=== PATIENT | female | born 2000 | race African-American/Black ===

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

== ENCOUNTER 2019-04-12 16:12 | Emergency (ER) | payer OTHER ==
[2019-04-12] MEDS ORDERED: METOCLOPRAMIDE 5 MG/ML 2 ML VIAL IVP STA (17:22)
[2019-04-12] MEDS ORDERED: KETOROLAC 30 MG/ML 1 ML VIAL IVP STA (17:22)
[2019-04-12] MEDS ORDERED: diphenhydrAMINE 50 MG/ML 1 ML VIAL IVP STA (17:23)
--- NOTE | 2019-04-12 17:37 | ED ---
General Adult HPI - General Chief complaint: Headache Stated complaint: MIGRAINE Time Seen by Provider: 04/12/19 16:54 Source: patient, RN notes reviewed Mode of arrival: ambulatory Limitations: no limitations - History of Present Illness Initial comments: 18-year-old female presents to the emergency department for chief complaint of headache. Patient has had a headache since yesterday. Describes as across the frontal aspect of her head. Patient has had headaches like this several times before. He states they have always felt exactly the same. Denies any new features of this headache. States her pain is currently 7 out of 10. States pain came on gradually yesterday and did not have any features of maximal intensity at onset. Denies any neck pain or stiffness. Denies fevers or chills.Patient has no other complaints at this time including shortness of breath, chest pain, abdominal pain, nausea or vomiting,, or visual changes. - Related Data Home Medications Medication Instructions Recorded Confirmed RX: Insulin Aspart [NovoLOG] 25 units SQ AC-LUNCH 05/08/18 12/10/18 RX: acetaZOLAMIDE [Diamox] 500 mg PO DAILY 05/08/18 12/10/18 Previous Rx's Medication Instructions Recorded RX: Insulin NPH Hum/Reg Insulin Hm 50 unit SQ BID 30 Days #30 05/11/18 [NovoLIN 70-30 100 UNIT/ML VIAL] Allergies Allergy/AdvReac Type Severity Reaction Status Date / Time No Known Allergies Allergy Verified 12/10/18 17:11 Review of Systems ROS Statement: Those systems with pertinent positive or pertinent negative responses have been documented in the HPI. ROS Other: All systems not noted in ROS Statement are negative. Past Medical History Past Medical History: Diabetes Mellitus Additional Past Medical History / Comment(s): pseudo tumor causing chest pain in 2014 History of Any Multi-Drug Resistant Organisms: None Reported, MRSA Date of last positivie culture/infection: 2011 MDRO Source:: hand Past Surgical History: No Surgical Hx Reported Past Psychological History: No Psychological Hx Reported Smoking Status: Never smoker Past Alcohol Use History: None Reported Past Drug Use History: None Reported - Past Family History Father Family Medical History: Diabetes Mellitus Mother Family Medical History: Asthma, Diabetes Mellitus General Exam Limitations: no limitations General appearance: alert, in no apparent distress Head exam: Present: atraumatic, normocephalic, normal inspection Eye exam: Present: normal appearance, PERRL, EOMI. Absent: scleral icterus, conjunctival injection, periorbital swelling ENT exam: Present: normal exam, mucous membranes moist Neck exam: Present: normal inspection, full ROM. Absent: tenderness, meningismus, lymphadenopathy Respiratory exam: Present: normal lung sounds bilaterally. Absent: respiratory distress, wheezes, rales, rhonchi, stridor Cardiovascular Exam: Present: regular rate, normal rhythm, normal heart sounds. Absent: systolic murmur, diastolic murmur, rubs, gallop, clicks Neurological exam: Present: alert, oriented X3, normal gait Course Vital Signs 04/12/19 16:51 Temperature 98.1 F Pulse Rate 90 Respiratory 17 Rate Blood Pressure 124/85 O2 Sat by Pulse 100 Oximetry Medical Decision Making - Medical Decision Making Patient was given migraine cocktail. Significant improvement in pain. Currently requesting discharge. Patient was discharged from the follow-up with primary care. Recommended to return here if she has any worsening symptoms. Disposition Clinical Impression: Headache Disposition: HOME SELF-CARE Condition: Good Instructions (If sedation given, give patient instructions): Acute Headache (ED) Additional Instructions: Take Motrin and Tylenol for pain. Follow up with your primary care provider in one to 2 days. Return to the emergency department if you have any worsening symptoms. Is patient prescribed a controlled substance at d/c from ED?: No Referrals: Zina Veronica MD [Primary Care Provider] - 1-2 days Time of Disposition: 18:07
[2019-04-12] MEDS ORDERED: SODIUM CHLORIDE 0.9% 1,000 ML IV STA (17:45)
[2019-04-12 19:07] VITALS: BP 118/73; PULSE 102; RESP 18; TEMP 96.9
== END 2019-04-12 19:05 | disposition home or self-care (01) ==
LOC: EC 16:12
DX: R51 Headache (principal); E11.9 Type 2 diabetes mellitus without complications; Z79.4 Long term (current) use of insulin; Z86.14 Personal history of Methicillin resistant Staphylococcus aureus infection
CPT/HCPCS: 99283; 96374; 96375 ×2; 96361; J1200; J2765; J1885

== ENCOUNTER 2019-07-07 05:38 | Emergency (ER) | payer OTHER ==
[2019-07-07 05:43] VITALS: TEMP 97.3
[2019-07-07 05:48] LABS: Glucose,Whole Blood 252 mg/dL (75-99)
[2019-07-07] MEDS ORDERED: SODIUM CHLORIDE 0.9% 1,000 ML IV STA (06:19)
--- NOTE | 2019-07-07 06:22 | ED ---
Abdominal Pain HPI - General Chief Complaint: Abdominal Pain Stated Complaint: Menstrual cramps, vomiting Time Seen by Provider: 07/07/19 05:47 Source: patient, EMS Mode of arrival: EMS - History of Present Illness Initial Comments: Kylie is a 18-year-old female who presents the ER today ambulance for evaluation of menstrual cramps nausea and vomiting. Patient reports she has suffered with this for a long period of time she severe cramping with her menses was nauseated and has vomiting. She's been seen in the ER for this she is followed with her primary care she was prescribed control but reported she didn't like how it made her feel therefore she discontinued use after only 2 months. She's never been evaluated by gynecology. She has had pelvic ultrasounds past never been told that she has endometriosis or polycystic ovaries. The patient reports she is not sexually active she has no concern for sexual transmitted infections or PID. She has no concern for sheet. She is actively on her menses. - Related Data Home Medications Medication Instructions Recorded Confirmed Insulin Aspart [NovoLOG] 25 units SQ AC-LUNCH 05/08/18 12/10/18 acetaZOLAMIDE [Diamox] 500 mg PO DAILY 05/08/18 12/10/18 Previous Rx's Medication Instructions Recorded Insulin NPH Hum/Reg Insulin Hm 50 unit SQ BID 30 Days #30 05/11/18 [NovoLIN 70-30 100 UNIT/ML VIAL] Allergies Allergy/AdvReac Type Severity Reaction Status Date / Time No Known Allergies Allergy Verified 07/07/19 05:43 Review of Systems ROS Statement: Those systems with pertinent positive or pertinent negative responses have been documented in the HPI. ROS Other: All systems not noted in ROS Statement are negative. Past Medical History Past Medical History: Diabetes Mellitus Additional Past Medical History / Comment(s): pseudo tumor causing chest pain in 2014 History of Any Multi-Drug Resistant Organisms: None Reported, MRSA Date of last positivie culture/infection: 2011 MDRO Source:: hand Past Surgical History: No Surgical Hx Reported Past Psychological History: No Psychological Hx Reported Smoking Status: Never smoker Past Alcohol Use History: None Reported Past Drug Use History: None Reported - Past Family History Father Family Medical History: Diabetes Mellitus Mother Family Medical History: Asthma, Diabetes Mellitus Course Vital Signs 07/07/19 07/07/19 05:41 07:53 Temperature 97.3 F L Pulse Rate 80 68 Respiratory 18 20 Rate Blood Pressure 149/93 132/72 O2 Sat by Pulse 100 98 Oximetry Medical Decision Making - Medical Decision Making SHEENT was seen and evaluated history is obtained from the patient 89 female who experiences very severe menstrual cramping with associated nausea and vomiting, this episode is similar to previous, symptoms did not improve with 2 months of control use that she discontinued it, patient has never been evaluated by a programming director Upon my evaluation the patient's abdomen is soft, nontender non-peritoneal she is awake alert and oriented she is heaving but not vomiting. She was given Zofran in route to the hospital. Labs and imaging were ordered After urine came back negative multiple occasions were ordered however upon reevaluation the patient was sleeping comfortably. At this time the patient will be discharged home, she was advised to take Motrin for menstrual cramps, Zofran as needed for the nausea. Again patient was encouraged to follow up with a programming director for further evaluation of possible endometriosis or PMDD. - Lab Data Result diagrams: 07/07/19 05:55 07/07/19 05:55 Lab Results 07/07/19 07/07/19 07/07/19 Range/Units 05:45 05:55 05:55 WBC 7.1 (4.0-11.0) k/uL RBC 5.64 H (3.80-5.40) m/uL Hgb 10.0 L (11.4-16.0) gm/dL Hct 34.6 (34.0-46.0) % MCV 61.4 L (80.0-100.0) fL MCH 17.8 L (25.0-35.0) pg MCHC 29.0 L (31.0-37.0) g/dL RDW 17.5 H (11.5-15.5) % Plt Count 354 (150-450) k/uL Neutrophils % 68 % Lymphocytes % 25 % Monocytes % 5 % Eosinophils % 1 % Basophils % 0 % Neutrophils # 4.8 (1.3-7.7) k/uL Lymphocytes # 1.8 (1.0-4.8) k/uL Monocytes # 0.3 (0-1.0) k/uL Eosinophils # 0.1 (0-0.7) k/uL Basophils # 0.0 (0-0.2) k/uL Hypochromasia Marked Anisocytosis Slight Microcytosis Marked Sodium 139 (137-145) mmol/L Potassium 3.9 (3.5-5.1) mmol/L Chloride 106 (98-107) mmol/L Carbon Dioxide 21 L (22-30) mmol/L Anion Gap 12 mmol/L BUN 8 (7-17) mg/dL Creatinine 0.46 L (0.52-1.04) mg/dL Est GFR (CKD-EPI)AfAm >90 (>60 ml/min/1.73 sqM) Est GFR (CKD-EPI)NonAf >90 (>60 ml/min/1.73 sqM) Glucose 247 H (74-99) mg/dL POC Glucose (mg/dL) 252 H (75-99) mg/dL POC Glu Music Director ID Salma Mcmillan Calcium 9.6 (8.4-10.2) mg/dL Total Bilirubin 0.2 (0.2-1.3) mg/dL AST 15 (14-36) U/L ALT 11 (4-34) U/L Alkaline Phosphatase 92 (38-126) U/L Total Protein 8.0 (6.3-8.2) g/dL Albumin 4.1 (3.5-5.0) g/dL Lipase 70 (23-300) U/L Urine Color Urine Appearance (Clear) Urine pH (5.0-8.0) Ur Specific [place] (1.001-1.035) Urine Protein (Negative) Urine Glucose (UA) (Negative) Urine Ketones (Negative) Urine Blood (Negative) Urine Nitrite (Negative) Urine Bilirubin (Negative) Urine Urobilinogen (<2.0) mg/dL Ur Leukocyte Esterase (Negative) Urine RBC (0-5) /hpf Urine WBC (0-5) /hpf Ur Squamous Epith Cells (0-4) /hpf Amorphous Sediment (None) /hpf Urine Bacteria (None) /hpf Urine Mucus (None) /hpf Urine HCG, Qual (Not Detectd) 07/07/19 07/07/19 Range/Units 06:00 06:00 WBC (4.0-11.0) k/uL RBC (3.80-5.40) m/uL Hgb (11.4-16.0) gm/dL Hct (34.0-46.0) % MCV (80.0-100.0) fL MCH (25.0-35.0) pg MCHC (31.0-37.0) g/dL RDW (11.5-15.5) % Plt Count (150-450) k/uL Neutrophils % % Lymphocytes % % Monocytes % % Eosinophils % % Basophils % % Neutrophils # (1.3-7.7) k/uL Lymphocytes # (1.0-4.8) k/uL Monocytes # (0-1.0) k/uL Eosinophils # (0-0.7) k/uL Basophils # (0-0.2) k/uL Hypochromasia Anisocytosis Microcytosis Sodium (137-145) mmol/L Potassium (3.5-5.1) mmol/L Chloride (98-107) mmol/L Carbon Dioxide (22-30) mmol/L Anion Gap mmol/L BUN (7-17) mg/dL Creatinine (0.52-1.04) mg/dL Est GFR (CKD-EPI)AfAm (>60 ml/min/1.73 sqM) Est GFR (CKD-EPI)NonAf (>60 ml/min/1.73 sqM) Glucose (74-99) mg/dL POC Glucose (mg/dL) (75-99) mg/dL POC Glu Music Director ID Calcium (8.4-10.2) mg/dL Total Bilirubin (0.2-1.3) mg/dL AST (14-36) U/L ALT (4-34) U/L Alkaline Phosphatase (38-126) U/L Total Protein (6.3-8.2) g/dL Albumin (3.5-5.0) g/dL Lipase (23-300) U/L Urine Color Yellow Urine Appearance Cloudy H (Clear) Urine pH 6.5 (5.0-8.0) Ur Specific [place] 1.013 (1.001-1.035) Urine Protein Trace H (Negative) Urine Glucose (UA) Negative (Negative) Urine Ketones Negative (Negative) Urine Blood Moderate H (Negative) Urine Nitrite Negative (Negative) Urine Bilirubin Negative (Negative) Urine Urobilinogen <2.0 (<2.0) mg/dL Ur Leukocyte Esterase Moderate H (Negative) Urine RBC >182 H (0-5) /hpf Urine WBC 5 (0-5) /hpf Ur Squamous Epith Cells 3 (0-4) /hpf Amorphous Sediment Rare H (None) /hpf Urine Bacteria Rare H (None) /hpf Urine Mucus Rare H (None) /hpf Urine HCG, Qual Not Detected (Not Detectd) Disposition Clinical Impression: Abdominal pain Disposition: HOME SELF-CARE Condition: Stable Additional Instructions: You need to follow up with gynecology for further evaluation of your severe menstrual symptoms. Advised suspicion he may be suffering from endometriosis but this can only be diagnosed by a programming director. Take Motrin as needed for discomfort Take Zofran as needed for nausea Make sure drinking plenty of fluids and stay hydrated Return to the ER for any worsening symptoms Is patient prescribed a controlled substance at d/c from ED?: No Referrals: Tam Copeland MD [Primary Care Provider] - 1-2 days
[2019-07-07 06:24] LABS: Amorphous Sediment,Urine Rare /hpf; Appearance,Urine Cloudy (Clear); Bacteria,Urine Rare /hpf; Bilirubin,Urine Negative (Negative); Blood,Urine Moderate (Negative); Color,Urine Yellow; Glucose,Urine (UA) Negative (Negative); Ketones,Urine Negative (Negative); Leukocyte Esterase,Urine Moderate (Negative); Mucus,Urine Rare /hpf; Nitrite,Urine Negative (Negative); PH, Urine 6.5 (5.0-8.0); Protein,Urine Trace (Negative); RBC,Urine >182 /hpf (0-5); Specific Gravity,Urine 1.013 (1.001-1.035); Squamous Epithelial Cell,Urine 3 /hpf (0-4); Urobilinogen,Urine <2.0 mg/dL (<2.0); WBC,Urine 5 /hpf (0-5)
[2019-07-07 06:34] LABS: Anisocytosis Slight; Basophils % (A) 0 %; Eosinophils # (A) 0.1 k/uL (0-0.7); Eosinophils % (A) 1 %; HCT 34.6 % (34.0-46.0); Hypochromasia Marked; Lymphocytes # (A) 1.8 k/uL (1.0-4.8); Lymphocytes % (A) 25 %; MCH 17.8 pg (25.0-35.0); MCV 61.4 fL (80.0-100.0); Mean Platelet Volume 6.8; Microcytosis Marked; Monocytes # (A) 0.3 k/uL (0-1.0); Monocytes % (A) 5 %; Neutrophils # (A) 4.8 k/uL (1.3-7.7); Neutrophils % (A) 68 %; Platelet Count 354 k/uL (150-450); RBC 5.64 m/uL (3.80-5.40); RDW 17.5 % (11.5-15.5); WBC 7.1 k/uL (4.0-11.0)
[2019-07-07 06:46] LABS: ALT 11 U/L (4-34); AST 15 U/L (14-36); African American GFR (CKD) >90 (>60 ml/min/1.73 sqM); Albumin 4.1 g/dL (3.5-5.0); Alkaline Phosphatase 92 U/L (38-126); Anion Gap 12 mmol/L; Blood Urea Nitrogen 8 mg/dL (7-17); Calcium 9.6 mg/dL (8.4-10.2); Carbon Dioxide 21 mmol/L (22-30); Chloride 106 mmol/L (98-107); Glucose 247 mg/dL (74-99); Non-African American GFR(CKD) >90 (>60 ml/min/1.73 sqM); Potassium 3.9 mmol/L (3.5-5.1); Sodium 139 mmol/L (137-145); Total Bilirubin 0.2 mg/dL (0.2-1.3)
[2019-07-07] MEDS ORDERED: diphenhydrAMINE 50 MG/ML 1 ML VIAL IVP STA (07:15)
[2019-07-07] MEDS ORDERED: KETOROLAC 30 MG/ML 1 ML VIAL IVP STA (07:15)
[2019-07-07] MEDS ORDERED: METOCLOPRAMIDE 5 MG/ML 2 ML VIAL IVP STA (07:15)
[2019-07-07] MEDS ORDERED: ONDANSETRON 4 MG ODT STARTER PACK 2 TAB BTL PO STA (07:29)
[2019-07-07 07:54] VITALS: BP 132/72; PULSE 68; RESP 20
--- NOTE | 2019-07-09 00:46 | CDI ---
Dear Heather Dolan DO: Please do addendum Physical Examination. Thank You, Hima Ward, Phlebotomist Medical Lab Assistant. If you have any questions, please contact [employer] at [phone]. [facility]
== END 2019-07-07 07:59 | disposition home or self-care (01) ==
LOC: EC 05:38
DX: R10.9 Unspecified abdominal pain (principal); R11.2 Nausea with vomiting, unspecified; N94.6 Dysmenorrhea, unspecified; E11.9 Type 2 diabetes mellitus without complications; Z79.4 Long term (current) use of insulin; Z86.14 Personal history of Methicillin resistant Staphylococcus aureus infection; Z53.8 Procedure and treatment not carried out for other reasons
CPT/HCPCS: 99284; 96374; 96375; 96361; 36415; 80053; 83690; 85025; 81001; 81025; J1200; J2765; S0119

== ENCOUNTER 2019-09-05 15:25 | Emergency (ER) | payer OTHER ==
[2019-09-05 15:39] VITALS: RESP 18
[2019-09-05] MEDS ORDERED: ONDANSETRON 4 MG/2 ML VIAL IVP STA (16:30)
[2019-09-05] MEDS ORDERED: SODIUM CHLORIDE 0.9% 1,000 ML IV STA (16:30)
[2019-09-05] MEDS ORDERED: KETOROLAC 30 MG/ML 1 ML VIAL IVP STA (16:30)
[2019-09-05 16:50] LABS: African American GFR (CKD) >90 (>60 ml/min/1.73 sqM); Anion Gap 14 mmol/L; Blood Urea Nitrogen 7 mg/dL (7-17); Calcium 9.8 mg/dL (8.4-10.2); Carbon Dioxide 19 mmol/L (22-30); Chloride 105 mmol/L (98-107); Glucose 291 mg/dL (74-99); Non-African American GFR(CKD) >90 (>60 ml/min/1.73 sqM); Potassium 4.5 mmol/L (3.5-5.1); Sodium 138 mmol/L (137-145)
[2019-09-05 17:00] LABS: Anisocytosis Slight; Basophils % (A) 0 %; Eosinophils # (A) 0.2 k/uL (0-0.7); Eosinophils % (A) 2 %; HCT 39.3 % (34.0-46.0); Hypochromasia Marked; Lymphocytes # (A) 2.3 k/uL (1.0-4.8); Lymphocytes % (A) 24 %; MCH 18.1 pg (25.0-35.0); MCHC 27.9 g/dL (31.0-37.0); MCV 64.9 fL (80.0-100.0); Mean Platelet Volume 7.6; Microcytosis Marked; Monocytes # (A) 0.3 k/uL (0-1.0); Monocytes % (A) 3 %; Neutrophils # (A) 6.7 k/uL (1.3-7.7); Neutrophils % (A) 70 %; Platelet Count 411 k/uL (150-450); RBC 6.05 m/uL (3.80-5.40); RDW 16.4 % (11.5-15.5); WBC 9.6 k/uL (4.0-11.0)
[2019-09-05 17:56] LABS: Amorphous Sediment,Urine Rare /hpf; Appearance,Urine Cloudy (Clear); Bilirubin,Urine Negative (Negative); Blood,Urine Moderate (Negative); Color,Urine Yellow; Glucose,Urine (UA) Negative (Negative); Ketones,Urine Negative (Negative); Leukocyte Esterase,Urine Large (Negative); Mucus,Urine Rare /hpf; Nitrite,Urine Negative (Negative); PH, Urine 7.5 (5.0-8.0); Protein,Urine Trace (Negative); RBC,Urine >182 /hpf (0-5); Specific Gravity,Urine 1.014 (1.001-1.035); Squamous Epithelial Cell,Urine 2 /hpf (0-4); Urobilinogen,Urine <2.0 mg/dL (<2.0); WBC,Urine 16 /hpf (0-5)
--- NOTE | 2019-09-05 18:12 | ED ---
Abdominal Pain HPI - General Chief Complaint: Abdominal Pain Stated Complaint: Abd pain Time Seen by Provider: 09/05/19 16:04 Source: patient Mode of arrival: wheelchair Limitations: no limitations - History of Present Illness Initial Comments: Patient is a 18-year-old female presenting to the emergency Department with complaints of lower abdominal cramping and nausea for 2 days. Patient states she will sometimes get this way when her cycle comes. Patient states it feels the same kind of abdominal cramping she gets with her cycles. She states she tried a nausea medication this morning without relief. She denies any fever, chills, diarrhea. She denies being at this time. She has no other complaints at this time. Upon arrival to the ER, her vitals are stable. - Related Data Home Medications Medication Instructions Recorded Confirmed Insulin Aspart [NovoLOG] 25 units SQ AC-LUNCH 05/08/18 12/10/18 acetaZOLAMIDE [Diamox] 500 mg PO DAILY 05/08/18 12/10/18 Previous Rx's Medication Instructions Recorded Insulin NPH Hum/Reg Insulin Hm 50 unit SQ BID 30 Days #30 05/11/18 [NovoLIN 70-30 100 UNIT/ML VIAL] Ondansetron Odt [Zofran Odt] 4 mg PO Q8HR PRN #10 tab 09/05/19 Allergies Allergy/AdvReac Type Severity Reaction Status Date / Time No Known Allergies Allergy Verified 09/05/19 15:39 Review of Systems ROS Statement: Those systems with pertinent positive or pertinent negative responses have been documented in the HPI. ROS Other: All systems not noted in ROS Statement are negative. Past Medical History Past Medical History: Diabetes Mellitus Additional Past Medical History / Comment(s): pseudo tumor causing chest pain in 2014 History of Any Multi-Drug Resistant Organisms: None Reported, MRSA Date of last positivie culture/infection: 2011 MDRO Source:: hand Past Surgical History: No Surgical Hx Reported Past Psychological History: No Psychological Hx Reported Smoking Status: Never smoker Past Alcohol Use History: None Reported Past Drug Use History: None Reported - Past Family History Father Family Medical History: Diabetes Mellitus Mother Family Medical History: Asthma, Diabetes Mellitus General Exam - General Exam Comments Initial Comments: GENERAL: Well-appearing, well-nourished and in no acute distress. HEAD: Atraumatic, normocephalic. EYES: Pupils equal round and reactive to light, extraocular movements intact, sclera anicteric, conjunctiva are normal. ENT: TMs normal, nares patent, oropharynx clear without exudates. Moist mucous membranes. NECK: Normal range of motion, supple without lymphadenopathy or JVD. LUNGS: Breath sounds clear to auscultation bilaterally and equal. No wheezes rales or rhonchi. HEART: Regular rate and rhythm without murmurs, rubs or gallops. ABDOMEN: Very mild suprapubic tenderness on palpation. Soft, normoactive bowel sounds. No guarding, no rebound. No masses appreciated. : Deferred EXTREMITIES: Normal range of motion, no pitting or edema. No clubbing or cyanosis. NEUROLOGICAL: Normal speech, normal gait. PSYCH: Normal mood, normal affect. SKIN: Warm, Dry, normal turgor, no rashes or lesions noted. Limitations: no limitations Course Vital Signs 09/05/19 09/05/19 15:37 18:26 Temperature 97.8 F 98.4 F Pulse Rate 95 74 Respiratory 18 18 Rate Blood Pressure 155/96 113/63 O2 Sat by Pulse 100 98 Oximetry Medical Decision Making - Medical Decision Making Patient is a 18-year-old female here for lower abdominal cramping and nausea in relation to her menstrual cycle. She has been here for the same thing in the past. Vitals are stable. Exam is unremarkable. Patient was given Toradol, Zofran, fluids. She's been resting complaining ER. She reports improvement of symptoms. Discussed with patient and her symptoms are most likely related to her menstrual cycle. She will take ibuprofen as needed as well as Zofran for nausea. Patient is stable for discharge. Return parameters were discussed with the patient she verbalized understanding. - Lab Data Result diagrams: 09/05/19 16:00 09/05/19 16:00 Lab Results 09/05/19 09/05/19 09/05/19 Range/Units 16:00 16:00 17:40 WBC 9.6 (4.0-11.0) k/uL RBC 6.05 H (3.80-5.40) m/uL Hgb 11.0 L (11.4-16.0) gm/dL Hct 39.3 (34.0-46.0) % MCV 64.9 L (80.0-100.0) fL MCH 18.1 L (25.0-35.0) pg MCHC 27.9 L (31.0-37.0) g/dL RDW 16.4 H (11.5-15.5) % Plt Count 411 (150-450) k/uL Neutrophils % 70 % Lymphocytes % 24 % Monocytes % 3 % Eosinophils % 2 % Basophils % 0 % Neutrophils # 6.7 (1.3-7.7) k/uL Lymphocytes # 2.3 (1.0-4.8) k/uL Monocytes # 0.3 (0-1.0) k/uL Eosinophils # 0.2 (0-0.7) k/uL Basophils # 0.0 (0-0.2) k/uL Hypochromasia Marked Anisocytosis Slight Microcytosis Marked Sodium 138 (137-145) mmol/L Potassium 4.5 (3.5-5.1) mmol/L Chloride 105 (98-107) mmol/L Carbon Dioxide 19 L (22-30) mmol/L Anion Gap 14 mmol/L BUN 7 (7-17) mg/dL Creatinine 0.41 L (0.52-1.04) mg/dL Est GFR (CKD-EPI)AfAm >90 (>60 ml/min/1.73 sqM) Est GFR (CKD-EPI)NonAf >90 (>60 ml/min/1.73 sqM) Glucose 291 H (74-99) mg/dL Calcium 9.8 (8.4-10.2) mg/dL Urine Color Yellow Urine Appearance Cloudy H (Clear) Urine pH 7.5 (5.0-8.0) Ur Specific [place] 1.014 (1.001-1.035) Urine Protein Trace H (Negative) Urine Glucose (UA) Negative (Negative) Urine Ketones Negative (Negative) Urine Blood Moderate H (Negative) Urine Nitrite Negative (Negative) Urine Bilirubin Negative (Negative) Urine Urobilinogen <2.0 (<2.0) mg/dL Ur Leukocyte Esterase Large H (Negative) Urine RBC >182 H (0-5) /hpf Urine WBC 16 H (0-5) /hpf Ur Squamous Epith Cells 2 (0-4) /hpf Amorphous Sediment Rare H (None) /hpf Urine Mucus Rare H (None) /hpf Urine HCG, Qual (Not Detectd) 09/05/19 Range/Units 17:40 WBC (4.0-11.0) k/uL RBC (3.80-5.40) m/uL Hgb (11.4-16.0) gm/dL Hct (34.0-46.0) % MCV (80.0-100.0) fL MCH (25.0-35.0) pg MCHC (31.0-37.0) g/dL RDW (11.5-15.5) % Plt Count (150-450) k/uL Neutrophils % % Lymphocytes % % Monocytes % % Eosinophils % % Basophils % % Neutrophils # (1.3-7.7) k/uL Lymphocytes # (1.0-4.8) k/uL Monocytes # (0-1.0) k/uL Eosinophils # (0-0.7) k/uL Basophils # (0-0.2) k/uL Hypochromasia Anisocytosis Microcytosis Sodium (137-145) mmol/L Potassium (3.5-5.1) mmol/L Chloride (98-107) mmol/L Carbon Dioxide (22-30) mmol/L Anion Gap mmol/L BUN (7-17) mg/dL Creatinine (0.52-1.04) mg/dL Est GFR (CKD-EPI)AfAm (>60 ml/min/1.73 sqM) Est GFR (CKD-EPI)NonAf (>60 ml/min/1.73 sqM) Glucose (74-99) mg/dL Calcium (8.4-10.2) mg/dL Urine Color Urine Appearance (Clear) Urine pH (5.0-8.0) Ur Specific [place] (1.001-1.035) Urine Protein (Negative) Urine Glucose (UA) (Negative) Urine Ketones (Negative) Urine Blood (Negative) Urine Nitrite (Negative) Urine Bilirubin (Negative) Urine Urobilinogen (<2.0) mg/dL Ur Leukocyte Esterase (Negative) Urine RBC (0-5) /hpf Urine WBC (0-5) /hpf Ur Squamous Epith Cells (0-4) /hpf Amorphous Sediment (None) /hpf Urine Mucus (None) /hpf Urine HCG, Qual Not Detected (Not Detectd) Disposition Clinical Impression: Nausea & vomiting, Menstrual cramps Disposition: HOME SELF-CARE Condition: Stable Instructions (If sedation given, give patient instructions): Dysmenorrhea (ED) Additional Instructions: Please return to the Emergency Department if symptoms worsen or any other concerns. Take ibuprofen for cramping as well as Zofran as needed for additional nausea. Prescriptions: Ondansetron Odt [Zofran Odt] 4 mg PO Q8HR PRN #10 tab PRN Reason: Nausea Is patient prescribed a controlled substance at d/c from ED?: No Referrals: Tam Copeland MD [Primary Care Provider] - 1-2 days
[2019-09-05 18:27] VITALS: BP 113/63; PULSE 74; TEMP 98.4
== END 2019-09-05 18:26 | disposition home or self-care (01) ==
LOC: EC 15:25
DX: N94.6 Dysmenorrhea, unspecified (principal); R11.2 Nausea with vomiting, unspecified; E11.9 Type 2 diabetes mellitus without complications; Z79.4 Long term (current) use of insulin; Z79.899 Other long term (current) drug therapy
CPT/HCPCS: 36415; 80048; 85025; 81001; 81025; 87086; 99284; 96374; 96375; 96361; J2405; J1885

== ENCOUNTER 2019-11-04 17:40 | Emergency (ER) | payer OTHER ==
[2019-11-04 17:44] VITALS: RESP 16
[2019-11-04] MEDS ORDERED: SODIUM CHLORIDE 0.9% 1,000 ML IV STA (18:16)
[2019-11-04] MEDS ORDERED: ONDANSETRON 4 MG/2 ML VIAL IVP STA (18:16)
[2019-11-04] MEDS ORDERED: KETOROLAC 30 MG/ML 1 ML VIAL IVP STA (18:16)
--- NOTE | 2019-11-04 18:19 | ED ---
Abdominal Pain HPI - General Chief Complaint: Abdominal Pain Stated Complaint: menstrual cramps Time Seen by Provider: 11/04/19 18:05 Source: patient Mode of arrival: wheelchair Limitations: no limitations - History of Present Illness Initial Comments: Patient is a 19-year-old female with history of dysmenorrhea and type 2 diabetes presenting to the emergency department with a chief complaint of menstrual cramps. Patient states typically she develops abdominal cramping secondary to her menstrual cycle about 2 days after the onset of bleeding. Patient reports today she developed the cramping along with nausea and multiple episodes of nonbilious and nonbloody vomiting immediately after she started her cycle. States the pain is cramping in nature in the suprapubic region. Does report vaginal bleeding. Denies UTI symptoms. Does report taking [id number] analgesics with minimal improvement of symptoms. States her diabetes is not well-controlled. - Related Data Home Medications Medication Instructions Recorded Confirmed INSULIN LISPRO (humaLOG) [humaLOG] See Protocol SQ AC-TID 11/04/19 11/04/19 Insulin Aspart Protam & Aspart 55 unit SQ DAILY 11/04/19 11/04/19 [NovoLOG MIX 70-30 Flexpen] Insulin Aspart Protam & Aspart 60 unit SQ HS 11/04/19 11/04/19 [NovoLOG MIX 70-30 Flexpen] Allergies Allergy/AdvReac Type Severity Reaction Status Date / Time No Known Allergies Allergy Verified 11/04/19 20:07 Review of Systems ROS Statement: Those systems with pertinent positive or pertinent negative responses have been documented in the HPI. ROS Other: All systems not noted in ROS Statement are negative. Past Medical History Past Medical History: Diabetes Mellitus Additional Past Medical History / Comment(s): pseudo tumor causing chest pain in 2014 History of Any Multi-Drug Resistant Organisms: None Reported, MRSA Date of last positivie culture/infection: 2011 MDRO Source:: hand Past Surgical History: No Surgical Hx Reported Past Psychological History: No Psychological Hx Reported Smoking Status: Never smoker Past Alcohol Use History: None Reported Past Drug Use History: None Reported - Past Family History Father Family Medical History: Diabetes Mellitus Mother Family Medical History: Asthma, Diabetes Mellitus General Exam Limitations: no limitations General appearance: alert, in no apparent distress, obese Head exam: Present: atraumatic, normocephalic, normal inspection Eye exam: Present: normal appearance, PERRL, EOMI Pupils: Present: normal accommodation ENT exam: Present: normal exam, normal oropharynx, mucous membranes moist, TM's normal bilaterally, normal external ear exam Neck exam: Present: normal inspection, full ROM. Absent: tenderness Respiratory exam: Present: normal lung sounds bilaterally. Absent: respiratory distress, wheezes Cardiovascular Exam: Present: regular rate, normal rhythm, normal heart sounds GI/Abdominal exam: Present: soft, tenderness (Suprapubic tenderness), normal bowel sounds. Absent: distended, guarding, rebound Extremities exam: Present: normal inspection, full ROM. Absent: tenderness Back exam: Present: normal inspection, full ROM. Absent: CVA tenderness (R), CVA tenderness (L) Neurological exam: Present: alert, oriented X3, CN II-XII intact, normal gait Psychiatric exam: Present: normal affect, normal mood Skin exam: Present: warm, dry, intact, normal color Course Vital Signs 11/04/19 17:42 Temperature 98.4 F Pulse Rate 82 Respiratory 16 Rate Blood Pressure 167/86 O2 Sat by Pulse 98 Oximetry Medical Decision Making - Medical Decision Making Patient is 19-year-old female with history of dysmenorrhea and type 2 diabetes presenting to emergency Department with chief complaint of menstrual cramps. Patient was given Toradol, fluids and Zofran. Reevaluation patient continues to be nauseous and vomiting. She was given Reglan and Benadryl. Patient still continues to be nauseous. Patient was given 1 mg of Ativan. Reevaluation patient reports improvement in symptoms along with resolution of the cramping symptoms. Patient states she is currently in the process of finding a new breeding manager. They have an appointment scheduled within a week. Return parameters thoroughly discussed the patient was understanding and agreeable. She will be discharged with Zofran. She was not able to give a urine sample. CBC reveals mild anemia of 11.1 K. elevated blood glucose levels at 250. Return parameters were thoroughly discussed the patient was understanding and agreeable. Case discussed with physician. - Lab Data Result diagrams: 11/04/19 20:50 11/04/19 20:50 Lab Results 11/04/19 11/04/19 Range/Units 20:50 20:50 WBC 8.3 (4.0-11.0) k/uL RBC 5.91 H (3.80-5.40) m/uL Hgb 11.1 L (11.4-16.0) gm/dL Hct 38.4 (34.0-46.0) % MCV 65.0 L (80.0-100.0) fL MCH 18.8 L (25.0-35.0) pg MCHC 29.0 L (31.0-37.0) g/dL RDW 16.0 H (11.5-15.5) % Plt Count 393 (150-450) k/uL Neutrophils % 77 % Lymphocytes % 17 % Monocytes % 3 % Eosinophils % 2 % Basophils % 0 % Neutrophils # 6.4 (1.3-7.7) k/uL Lymphocytes # 1.4 (1.0-4.8) k/uL Monocytes # 0.3 (0-1.0) k/uL Eosinophils # 0.2 (0-0.7) k/uL Basophils # 0.0 (0-0.2) k/uL Hypochromasia Marked Anisocytosis Slight Microcytosis Marked Sodium 136 L (137-145) mmol/L Potassium 3.9 (3.5-5.1) mmol/L Chloride 104 (98-107) mmol/L Carbon Dioxide 21 L (22-30) mmol/L Anion Gap 11 mmol/L BUN 7 (7-17) mg/dL Creatinine 0.37 L (0.52-1.04) mg/dL Est GFR (CKD-EPI)AfAm >90 (>60 ml/min/1.73 sqM) Est GFR (CKD-EPI)NonAf >90 (>60 ml/min/1.73 sqM) Glucose 253 H (74-99) mg/dL Calcium 9.1 (8.4-10.2) mg/dL Total Bilirubin 0.5 (0.2-1.3) mg/dL AST 25 (14-36) U/L ALT 13 (4-34) U/L Alkaline Phosphatase 110 (38-126) U/L Total Protein 8.5 H (6.3-8.2) g/dL Albumin 4.4 (3.5-5.0) g/dL Disposition Clinical Impression: Dysmenorrhea in adolescent, Nausea & vomiting Disposition: HOME SELF-CARE Condition: Stable Instructions (If sedation given, give patient instructions): Dysmenorrhea (ED) Additional Instructions: Take prescribed medication as directed. Follow up with a breeding manager. Return to emergency department if symptoms worsen. Is patient prescribed a controlled substance at d/c from ED?: No Referrals: Tam Copeland MD [Primary Care Provider] - 1-2 days Charles Hooper MD [STAFF PHYSICIAN] - 1-2 days Time of Disposition: 22:03
[2019-11-04] MEDS ORDERED: diphenhydrAMINE 50 MG/ML 1 ML VIAL IVP STA (19:37)
[2019-11-04] MEDS ORDERED: METOCLOPRAMIDE 5 MG/ML 2 ML VIAL IVP STA (19:38)
[2019-11-04] MEDS ORDERED: LORazepam 2 MG/ML INJ IV STA (20:19)
[2019-11-04 20:56] LABS: Anisocytosis Slight; Basophils % (A) 0 %; Eosinophils # (A) 0.2 k/uL (0-0.7); Eosinophils % (A) 2 %; HCT 38.4 % (34.0-46.0); HGB 11.1 gm/dL (11.4-16.0); Hypochromasia Marked; Lymphocytes # (A) 1.4 k/uL (1.0-4.8); Lymphocytes % (A) 17 %; MCH 18.8 pg (25.0-35.0); Mean Platelet Volume 6.8; Microcytosis Marked; Monocytes # (A) 0.3 k/uL (0-1.0); Monocytes % (A) 3 %; Neutrophils # (A) 6.4 k/uL (1.3-7.7); Neutrophils % (A) 77 %; Platelet Count 393 k/uL (150-450); RBC 5.91 m/uL (3.80-5.40); WBC 8.3 k/uL (4.0-11.0)
[2019-11-04 21:37] LABS: ALT 13 U/L (4-34); AST 25 U/L (14-36); African American GFR (CKD) >90 (>60 ml/min/1.73 sqM); Albumin 4.4 g/dL (3.5-5.0); Alkaline Phosphatase 110 U/L (38-126); Anion Gap 11 mmol/L; Blood Urea Nitrogen 7 mg/dL (7-17); Calcium 9.1 mg/dL (8.4-10.2); Carbon Dioxide 21 mmol/L (22-30); Chloride 104 mmol/L (98-107); Glucose 253 mg/dL (74-99); Non-African American GFR(CKD) >90 (>60 ml/min/1.73 sqM); Potassium 3.9 mmol/L (3.5-5.1); Sodium 136 mmol/L (137-145); Total Bilirubin 0.5 mg/dL (0.2-1.3); Total Protein 8.5 g/dL (6.3-8.2)
[2019-11-04 22:54] VITALS: BP 153/88; PULSE 84; TEMP 97.9
== END 2019-11-04 22:50 | disposition home or self-care (01) ==
LOC: EC 17:40
DX: N94.6 Dysmenorrhea, unspecified (principal); R11.2 Nausea with vomiting, unspecified; E11.9 Type 2 diabetes mellitus without complications; D64.9 Anemia, unspecified; R10.9 Unspecified abdominal pain; Z79.4 Long term (current) use of insulin; Z83.3 Family history of diabetes mellitus; Z86.14 Personal history of Methicillin resistant Staphylococcus aureus infection
CPT/HCPCS: 36415; 80053; 85025; 99284; 96374; 96375 ×4; 96361; J2060; J1200; J2765; J2405; J1885

== ENCOUNTER 2019-11-14 14:25 | Emergency (ER) | payer OTHER ==
[2019-11-14 14:31] VITALS: TEMP 98.1
[2019-11-14] MEDS ORDERED: SODIUM CHLORIDE 0.9% 1,000 ML IV STA (14:46)
[2019-11-14] MEDS ORDERED: KETOROLAC 30 MG/ML 1 ML VIAL IVP STA (14:46)
[2019-11-14] MEDS ORDERED: METOCLOPRAMIDE 5 MG/ML 2 ML VIAL IVP STA (14:46)
[2019-11-14] MEDS ORDERED: diphenhydrAMINE 50 MG/ML 1 ML VIAL IVP STA (14:46)
--- NOTE | 2019-11-14 14:55 | ED ---
Headache HPI - General Chief Complaint: Headache Stated Complaint: Abd pain, migraine Time Seen by Provider: 11/14/19 14:34 Source: RN notes reviewed, old records reviewed Mode of arrival: ambulatory Limitations: no limitations - History of Present Illness Initial Comments: Patient is a 19-year-old female who presents the emergency department today for evaluation for concern for migraine headache today, patient has episodes of nausea and vomiting yesterday. Patient percent history of migraines. She took Tylenol 7:30 this morning and states it wasn't helping her headache. She reports a frontal headache behind her eyes. Patient states that her abdominal pain is improved today. She denies any changes in urination. Her last menstrual period was 2 weeks ago. She states that she was feeling somewhat nauseous today and felt that it be best to come to the ER for further evaluation. She reports a gradual onset of headache today. - Related Data Home Medications Medication Instructions Recorded Confirmed INSULIN LISPRO (humaLOG) [humaLOG] See Protocol SQ AC-TID 11/04/19 11/04/19 Insulin Aspart Protam & Aspart 55 unit SQ DAILY 11/04/19 11/04/19 [NovoLOG MIX 70-30 Flexpen] Insulin Aspart Protam & Aspart 60 unit SQ HS 11/04/19 11/04/19 [NovoLOG MIX 70-30 Flexpen] Allergies Allergy/AdvReac Type Severity Reaction Status Date / Time No Known Allergies Allergy Verified 11/14/19 14:30 Review of Systems ROS Statement: Those systems with pertinent positive or pertinent negative responses have been documented in the HPI. ROS Other: All systems not noted in ROS Statement are negative. Past Medical History Past Medical History: Diabetes Mellitus Additional Past Medical History / Comment(s): pseudo tumor causing chest pain in 2014, migraines History of Any Multi-Drug Resistant Organisms: None Reported, MRSA Date of last positivie culture/infection: 2011 MDRO Source:: hand Past Surgical History: No Surgical Hx Reported Past Psychological History: No Psychological Hx Reported Smoking Status: Never smoker Past Alcohol Use History: None Reported Past Drug Use History: None Reported - Past Family History Father Family Medical History: Diabetes Mellitus Mother Family Medical History: Asthma, Diabetes Mellitus General Exam - General Exam Comments Initial Comments: 19 year old female. Limitations: no limitations General appearance: alert, in no apparent distress Head exam: Present: atraumatic, normocephalic, normal inspection Eye exam: Present: normal appearance, PERRL, EOMI. Absent: scleral icterus, conjunctival injection, periorbital swelling ENT exam: Present: normal exam, mucous membranes moist Neck exam: Present: normal inspection. Absent: tenderness, meningismus, lymphadenopathy Respiratory exam: Present: normal lung sounds bilaterally. Absent: respiratory distress, wheezes, rales, rhonchi, stridor Cardiovascular Exam: Present: regular rate, normal rhythm, normal heart sounds. Absent: systolic murmur, diastolic murmur, rubs, gallop, clicks GI/Abdominal exam: Present: soft, normal bowel sounds. Absent: distended, tenderness, guarding, rebound, rigid Extremities exam: Present: normal inspection, full ROM, normal capillary refill. Absent: tenderness, pedal edema, joint swelling, calf tenderness Back exam: Present: normal inspection Neurological exam: Present: alert, oriented X3, CN II-XII intact Psychiatric exam: Present: normal affect, normal mood Skin exam: Present: warm, dry, intact, normal color. Absent: rash Course Vital Signs 11/14/19 14:28 Temperature 98.1 F Pulse Rate 82 Respiratory 20 Rate Blood Pressure 158/81 O2 Sat by Pulse 99 Oximetry - Reevaluation(s) Reevaluation #1: 11/14/19 15:34 Patient was reevaluated and resting comfortably in bed. She reports her headache diminished. Medical Decision Making - Medical Decision Making 2-[age]old female presents returned today with migraine headache after nausea and vomiting yesterday. Patient has no acute neurological deficits. She has no abdominal tenderness otherwise appears well. Patient is given IV fluids for dehydration and was given migraine cocktail. She reports improvement of symptoms. I discussed at this time Patient should rest and remain hydrated follow-up with her primary care doctor. All questions were answered. Disposition Clinical Impression: Migraine Disposition: HOME SELF-CARE Condition: Good Instructions (If sedation given, give patient instructions): Acute Headache (ED) Additional Instructions: Rest, increase fluid intake. Please follow up with family doctor if symptoms h ave not improved over the next two days. Please return to the emergency room if your symptoms increase or worsen or for any other concerns. Is patient prescribed a controlled substance at d/c from ED?: No Referrals: Tam Copeland MD [Primary Care Provider] - 1-2 days Time of Disposition: 16:01
[2019-11-14 16:49] VITALS: BP 128/86; PULSE 71; RESP 16
== END 2019-11-14 16:47 | disposition home or self-care (01) ==
LOC: EC 14:25
DX: G43.909 Migraine, unspecified, not intractable, without status migrainosus (principal); E86.0 Dehydration; E11.9 Type 2 diabetes mellitus without complications; Z79.4 Long term (current) use of insulin; Z86.14 Personal history of Methicillin resistant Staphylococcus aureus infection
CPT/HCPCS: 99283; 96374; 96375 ×2; 96361; J1200; J2765; J1885

== ENCOUNTER 2021-08-30 05:59 | Emergency (ER) | payer OTHER ==
[2021-08-30 06:04] VITALS: RESP 18; TEMP 98.3
[2021-08-30] MEDS ORDERED: IPRATROPIUM-ALBUTEROL 3 ML NEB INHALATION STA (06:45)
--- NOTE | 2021-08-30 06:48 | ED ---
URI HPI - General Chief Complaint: Upper Respiratory Infection Stated Complaint: AMADO,Congestion Time Seen by Provider: 08/30/21 06:13 Source: patient, RN notes reviewed Mode of arrival: ambulatory Limitations: no limitations - History of Present Illness Initial Comments: This is a 20-year-old female presents emergency from chief complaint of cough congestion shortness of breath. Patient states symptoms started Friday his pressor with sinus congestion but overnight she's had increasing coughing, shortness breath. She tried a breathing treatment earlier today and it seemed to help much at that time. Patient states she is tightness in her chest does not on diarrhea constipation. Denies any ear pain no sore throat at this time. Patient states she did initially have some sore throat with her drainage. - Related Data Home Medications Medication Instructions Recorded Confirmed Insulin Aspart Protam & Aspart 60 unit SQ HS 11/04/19 08/30/21 [NovoLOG MIX 70-30 Flexpen] Insulin Aspart Protam & Aspart 70 unit SQ DAILY 11/04/19 08/30/21 [NovoLOG MIX 70-30 Flexpen] Insulin NPH/Reg Insulin 70/30 25 unit SQ AC-LUNCH 08/30/21 08/30/21 [humuLIN 70/30 VIAL] Insulin NPH/Reg Insulin 70/30 See Protocol SQ AC-LUNCH 08/30/21 08/30/21 [humuLIN 70/30 VIAL] Previous Rx's Medication Instructions Recorded Azithromycin [Zithromax Z-pack (6 0 mg PO DIRECTED #1 packet 08/30/21 tabs)] predniSONE 50 mg PO DAILY #3 tab 08/30/21 Allergies Allergy/AdvReac Type Severity Reaction Status Date / Time No Known Allergies Allergy Verified 08/30/21 06:56 Review of Systems ROS Statement: Those systems with pertinent positive or pertinent negative responses have been documented in the HPI. ROS Other: All systems not noted in ROS Statement are negative. Past Medical History Past Medical History: Blood Disorder, Diabetes Mellitus Additional Past Medical History / Comment(s): pseudo tumor causing chest pain in 2014, migraines. ANEMIA History of Any Multi-Drug Resistant Organisms: None Reported, MRSA Date of last positivie culture/infection: 2011 MDRO Source:: hand Past Surgical History: No Surgical Hx Reported Additional Past Surgical History / Comment(s): LUMBAR PUNCTURE Past Anesthesia/Blood Transfusion Reactions: Unable to Obtain Past Psychological History: No Psychological Hx Reported Smoking Status: Never smoker Past Alcohol Use History: None Reported Past Drug Use History: None Reported - Past Family History Father Family Medical History: Diabetes Mellitus Mother Family Medical History: Asthma, Diabetes Mellitus General Exam Limitations: no limitations General appearance: alert, in no apparent distress Head exam: Present: atraumatic, normocephalic, normal inspection Eye exam: Present: normal appearance, PERRL, EOMI. Absent: scleral icterus, conjunctival injection, periorbital swelling ENT exam: Present: normal exam, normal oropharynx, mucous membranes moist Neck exam: Present: normal inspection, full ROM. Absent: tenderness, meningismus, lymphadenopathy Respiratory exam: Present: wheezes. Absent: normal lung sounds bilaterally, respiratory distress, rales, rhonchi, stridor Cardiovascular Exam: Present: normal rhythm, tachycardia, normal heart sounds. Absent: systolic murmur, diastolic murmur, rubs, gallop, clicks GI/Abdominal exam: Present: soft, normal bowel sounds. Absent: distended, tenderness, guarding, rebound, rigid Course Vital Signs 08/30/21 08/30/21 08/30/21 06:01 07:22 07:32 Temperature 98.3 F Pulse Rate 116 H 106 H 111 H Respiratory 18 Rate Blood Pressure 141/82 O2 Sat by Pulse 94 L Oximetry Medical Decision Making - Medical Decision Making This a 28-year-old female presents emergency room with chief complaint of cough congestion. X-ray shows evidence of fall. Lobe pneumonia. Patient is negative covid 19 negative influenza. Patient did receive Rocephin will be discharged with azithromycin and 3 days with a steroid she is well-controlled diabetic states that she is able to correct her blood sugars. Patient understands that her blood sugar will be elevated. - Lab Data Lab Results 08/30/21 08/30/21 Range/Units 06:10 06:10 Coronavirus (PCR) Not Detected (Not Detectd) Influenza Type A RNA Not Detected (Not Detectd) Influenza Type B (PCR) Not Detected (Not Detectd) Disposition Clinical Impression: Pneumonia Disposition: HOME SELF-CARE Condition: Stable Instructions (If sedation given, give patient instructions): Pneumonia (ED) Additional Instructions: Please return to the Emergency Department if symptoms worsen or any other concerns. Prescriptions: predniSONE 50 mg PO DAILY #3 tab Azithromycin [Zithromax Z-pack (6 tabs)] 0 mg PO DIRECTED #1 packet Is patient prescribed a controlled substance at d/c from ED?: No Referrals: None,Stated [Primary Care Provider] - 1-2 days Time of Disposition: 07:38
--- NOTE | 2021-08-30 06:50 | XR ---
EXAMINATION TYPE: XR chest 2V DATE OF EXAM: 08/30/2021 COMPARISON: CTA chest and chest x-ray May 08, 2018 HISTORY: Cough. TECHNIQUE: Frontal and lateral views of the chest are obtained. FINDINGS: There is new inferior left upper lobe airspace opacity on background of some increased sumeet tral markings. No pleural effusion or pneumothorax is seen bilaterally. The cardiac silhouette size remains within normal limits. The osseous structures are intact. IMPRESSION: New focal inferior left upper lung pneumonic infiltrate.
[2021-08-30] MEDS ORDERED: cefTRIAXone 1,000 MG VIAL (IM USE) IM STA (07:35)
[2021-08-30 08:01] VITALS: BP 129/72; PULSE 106
== END 2021-08-30 08:01 | disposition home or self-care (01) ==
LOC: EC 05:59
DX: J18.9 Pneumonia, unspecified organism (principal); E11.9 Type 2 diabetes mellitus without complications; Z79.4 Long term (current) use of insulin; Z20.822 Contact with and (suspected) exposure to COVID-19
CPT/HCPCS: 94640; 87502; 87635; 71046; 99285; 96372; J0696

== ENCOUNTER 2021-10-11 11:55 | Emergency (ER) | payer OTHER ==
[2021-10-11 12:10] VITALS: BP 145/96; PULSE 92; RESP 18; TEMP 98.3
[2021-10-11] MEDS ORDERED: diphenhydrAMINE 50 MG CAP PO STA (13:24)
[2021-10-11] MEDS ORDERED: dexAMETHasone 2 MG TAB PO STA (13:24)
--- NOTE | 2021-10-11 13:28 | ED ---
Allergic Reaction HPI - General Chief complaint: Allergic Reaction Stated complaint: Allergic reaction Time Seen by Provider: 10/11/21 13:00 Source: patient, RN notes reviewed Mode of arrival: ambulatory Limitations: no limitations - History of Present Illness Initial Comments: This a 21-year-old female presents emergency Department with chief complaint of ALLERGIC reaction. States around 10:30 and this morning she states that she was mowing some soaps started feeling very itchy states that she felt like her throat was scratchy. Patient states that she took one Benadryl she states that symptoms have improved she has no sensation. Patient states she still feels mildly itchy. She's never had any reaction like this in the past patient offers no complaints. - Related Data Home Medications Medication Instructions Recorded Confirmed Insulin Aspart Protam & Aspart 60 unit SQ HS 11/04/19 08/30/21 [NovoLOG MIX 70-30 Flexpen] Insulin Aspart Protam & Aspart 70 unit SQ DAILY 11/04/19 08/30/21 [NovoLOG MIX 70-30 Flexpen] Insulin NPH/Reg Insulin 70/30 25 unit SQ AC-LUNCH 08/30/21 08/30/21 [humuLIN 70/30 VIAL] Insulin NPH/Reg Insulin 70/30 See Protocol SQ AC-LUNCH 08/30/21 08/30/21 [humuLIN 70/30 VIAL] Previous Rx's Medication Instructions Recorded Azithromycin [Zithromax Z-pack (6 0 mg PO DIRECTED #1 packet 08/30/21 tabs)] predniSONE 50 mg PO DAILY #3 tab 08/30/21 Allergies Allergy/AdvReac Type Severity Reaction Status Date / Time No Known Allergies Allergy Verified 08/30/21 06:56 Review of Systems ROS Statement: Those systems with pertinent positive or pertinent negative responses have been documented in the HPI. ROS Other: All systems not noted in ROS Statement are negative. Past Medical History Past Medical History: Blood Disorder, Diabetes Mellitus Additional Past Medical History / Comment(s): pseudo tumor causing chest pain in 2014, migraines. ANEMIA History of Any Multi-Drug Resistant Organisms: None Reported, MRSA Date of last positivie culture/infection: 2011 MDRO Source:: hand Past Surgical History: No Surgical Hx Reported Additional Past Surgical History / Comment(s): LUMBAR PUNCTURE Past Anesthesia/Blood Transfusion Reactions: Unable to Obtain Past Psychological History: No Psychological Hx Reported Smoking Status: Never smoker Past Alcohol Use History: None Reported Past Drug Use History: None Reported - Past Family History Father Family Medical History: Diabetes Mellitus Mother Family Medical History: Asthma, Diabetes Mellitus General Exam Limitations: no limitations General appearance: alert, in no apparent distress Head exam: Present: atraumatic, normocephalic, normal inspection Eye exam: Present: normal appearance, PERRL, EOMI. Absent: scleral icterus, conjunctival injection, periorbital swelling ENT exam: Present: normal exam, normal oropharynx, mucous membranes moist Neck exam: Present: normal inspection, full ROM. Absent: tenderness, meningismus, lymphadenopathy Respiratory exam: Present: normal lung sounds bilaterally. Absent: respiratory distress, wheezes, rales, rhonchi, stridor Cardiovascular Exam: Present: regular rate, normal rhythm, normal heart sounds. Absent: systolic murmur, diastolic murmur, rubs, gallop, clicks Skin exam: Present: warm, dry, intact, normal color. Absent: rash Course Vital Signs 10/11/21 12:08 Temperature 98.3 F Pulse Rate 92 Respiratory 18 Rate Blood Pressure 145/96 O2 Sat by Pulse 98 Oximetry Medical Decision Making - Medical Decision Making Patient no signs of distress. Patient states that she took one Benadryl prior arrival. Patient will receive one additional Benadryl and Decadron . Patient discharged in stable condition, return parameters discussed. Disposition Clinical Impression: Allergic reaction Disposition: HOME SELF-CARE Condition: Stable Instructions (If sedation given, give patient instructions): General Allergic Reaction (ED) Additional Instructions: Please return to the Emergency Department if symptoms worsen or any other concerns. Is patient prescribed a controlled substance at d/c from ED?: No Referrals: Mishel Slater MD [Primary Care Provider] - 1-2 days Time of Disposition: 13:27
== END 2021-10-11 13:46 | disposition home or self-care (01) ==
LOC: EC 11:55
DX: T78.40XA Allergy, unspecified, initial encounter (principal); E11.9 Type 2 diabetes mellitus without complications; Z79.4 Long term (current) use of insulin
CPT/HCPCS: 99283; J8540

== ENCOUNTER 2023-06-26 17:20 | Emergency (ER) | payer OTHER ==
[2023-06-26 17:51] VITALS: TEMP 98.3
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
[2023-06-26 18:48] LABS: Appearance,Urine Clear (Clear); Bacteria,Urine Few /hpf; Bilirubin,Urine Negative (Negative); Blood,Urine Moderate (Negative); Color,Urine Light Yellow; Glucose,Urine (UA) Negative (Negative); Ketones,Urine 1+ (Negative); Leukocyte Esterase,Urine Negative (Negative); Mucus,Urine Few /hpf; Nitrite,Urine Negative (Negative); PH, Urine 5.5 (5.0-8.0); Protein,Urine Trace (Negative); RBC,Urine 3 /hpf (0-5); Specific Gravity,Urine 1.022 (1.001-1.035); Squamous Epithelial Cell,Urine 4 /hpf (0-4); Urobilinogen,Urine <2.0 mg/dL (<2.0); WBC,Urine 3 /hpf (0-5)
[2023-06-26 20:38] LABS: Basophils # (A) 0.1 k/uL (0-0.2); Basophils % (A) 1 %; Eosinophils # (A) 0.5 k/uL (0-0.7); Eosinophils % (A) 5 %; HCT 37.3 % (34.0-46.0); HGB 11.3 gm/dL (11.4-16.0); Hypochromasia Moderate; Lymphocytes # (A) 3.5 k/uL (1.0-4.8); Lymphocytes % (A) 41 %; MCH 20.1 pg (25.0-35.0); MCHC 30.2 g/dL (31.0-37.0); MCV 66.7 fL (80.0-100.0); Mean Platelet Volume 6.9; Microcytosis Marked; Monocytes # (A) 0.3 k/uL (0-1.0); Monocytes % (A) 4 %; Neutrophils # (A) 4.2 k/uL (1.3-7.7); Neutrophils % (A) 48 %; Platelet Count 357 k/uL (150-450); RBC 5.59 m/uL (3.80-5.40); RDW 14.5 % (11.5-15.5); WBC 8.7 k/uL (3.8-10.6)
[2023-06-26 20:39] VITALS: RESP 18
[2023-06-26 21:07] LABS: ALT 10 U/L (4-34); AST 15 U/L (14-36); African American GFR (CKD) >90 (>60 ml/min/1.73 sqM); Albumin 4.2 g/dL (3.5-5.0); Alkaline Phosphatase 97 U/L (38-126); Amylase 61 U/L (30-110); Anion Gap 7 mmol/L; Blood Urea Nitrogen 7 mg/dL (7-17); Calcium 9.6 mg/dL (8.4-10.2); Carbon Dioxide 24 mmol/L (22-30); Chloride 106 mmol/L (98-107); Glucose 158 mg/dL (74-99); Lipase 63 U/L (23-300); Non-African American GFR(CKD) >90 (>60 ml/min/1.73 sqM); Potassium 3.9 mmol/L (3.5-5.1); Sodium 137 mmol/L (137-145); Total Bilirubin 0.6 mg/dL (0.2-1.3); Total Protein 7.7 g/dL (6.3-8.2)
[2023-06-26] MEDS: KETOROLAC 15 MG/ML 1 ML VIAL IVP STA ×2 (21:36→23:29)
--- NOTE | 2023-06-26 21:41 | US ---
EXAMINATION TYPE: US transvaginal DATE OF EXAM: 06/26/2023 COMPARISON: NONE CLINICAL INDICATION: Female, 22 years old with history of pain TECHNIQUE: Transabdominal sonographic images of the pelvis were acquired. Transvaginal sonographic im ages were medically necessary to better assess the pelvic viscera. Date of LMP: unknown FINDINGS: Uterus: Retroverted, measuring 8.6 x 7.1 x 5.3 cm Endometrial Stripe thickness: Measuring up to 12 mm Right Ovary: 4.6 x 2.4 x 2.1 cm Left Ovary: 4.1 x 3.2 x 2.9 cm 1. Uterus: Retroverted 2 hypoechoic areas fundal areas, likely leiomyomas, with largest measuring 3. 3 x 2.3 x 2.6 cm. 2. Endometrium: wnl 3. Right Ovary: Multiple follicles seen 4. Left Ovary: wnl Spectral, color and waveform doppler imaging shows good arterial and venous flow within the ovaries ; there is no evidence for ovarian torsion. 5. Bilateral Adnexa: Small amount of free fluid seen adjacent to right ovary 6. Posterior cul-de-sac: wnl IMPRESSION: No definite acute process. However, recommend six-week follow-up ultrasound characterization to recharacterize the findings at 1 .5 menstrual cycle.
--- NOTE | 2023-06-26 22:38 | CT ---
EXAMINATION TYPE: CT abdomen pelvis w con DATE OF EXAM: 06/26/2023 HISTORY: acute abdominal pain, RLQ CT DLP: 1745.3mGycm Automated Exposure Control for Dose Reduction was Utilized. CONTRAST: CT scan of the abdomen and pelvis is performed without oral but with IV Contrast, patient injected wi th 100ml mL of Isovue 300. COMPARISON: Prior CT May 08, 2018 FINDINGS: LUNG BASES: No significant abnormality is appreciated. LIVER/GB: Liver is heterogeneously hypodense consistent with fatty infiltrative hepatocellular diseas e. Mild hepatomegaly remains present. PANCREAS: No significant abnormality is seen. SPLEEN: No significant abnormality is seen. ADRENALS: No significant abnormality is seen. KIDNEYS: No significant abnormality is seen. BOWEL: No abnormal small or large bowel dilatation. Appendix is within normal limits for base of cec um axial image 67. UTERUS/ADNEXA: Anteverted slightly prominent lobulated uterus suggesting underlying fibroids. Symmetr ic normal-size ovaries. LYMPH NODES: No greater than 1cm abdominal or pelvic lymph nodes are appreciated. OSSEOUS STRUCTURES: No significant abnormality is seen. OTHER: No significant additional abnormality is seen. IMPRESSION: No significant acute finding is seen to account for patient's clinical symptoms of right lower quadrant pain.
[2023-06-26] MEDS: MORPHINE SULFATE 2 MG/ML SYRINGE IVP ONE (23:30)
[2023-06-26 23:59] VITALS: BP 138/79; PULSE 88
== END 2023-06-26 23:39 | disposition home or self-care (01) ==
LOC: EC 17:20
DX: D25.9 Leiomyoma of uterus, unspecified (principal); E11.9 Type 2 diabetes mellitus without complications; Z79.4 Long term (current) use of insulin
CPT/HCPCS: 36415; 80053; 82150; 83690; 85025; 81001; 81025; 93975; 76830; 74177; 99284; 96374; 96375; 96376; J2270; J1885; Q9967

== ENCOUNTER 2024-07-06 03:30 | Emergency (ER) | payer OTHER ==
--- NOTE | 2024-07-06 03:46 | ED ---
Nausea/Vomiting/Diarrhea HPI - General Chief complaint: Nausea/Vomiting/Diarrhea Stated complaint: vomitting,throat pain Time Seen by Provider: 07/06/24 03:45 Source: patient, RN notes reviewed, old records reviewed Mode of arrival: ambulatory Limitations: no limitations - History of Present Illness Initial comments: This is a 23-year-old female to the ER for evaluation of sore throat cough congestion and vomiting. Patient has no medical history takes no medications denies chance of . Main complaint is sore throat for tonight fevers. Persistent vomiting. MD complaint: nausea, vomiting -: days(s) Location: diffuse Radiation: none Severity: moderate Severity scale (1-10): 5 Quality: cramping, aching Consistency: intermittent Improves with: none Worsens with: none Associated Symptoms: cough, loss of appetite, nausea/vomiting - Related Data Home Medications Medication Instructions Recorded Confirmed Insulin Aspart Prot/Insuln Asp 60 unit SQ HS 11/04/19 08/30/21 [NovoLOG MIX 70-30 Flexpen] Insulin Aspart Prot/Insuln Asp 70 unit SQ DAILY 11/04/19 08/30/21 [NovoLOG MIX 70-30 Flexpen] Insulin NPH/Reg Insulin 70/30 25 unit SQ AC-LUNCH 08/30/21 08/30/21 [humuLIN 70/30 VIAL] Insulin NPH/Reg Insulin 70/30 See Protocol SQ AC-LUNCH 08/30/21 08/30/21 [humuLIN 70/30 VIAL] Previous Rx's Medication Instructions Recorded Azithromycin [Zithromax Z-pack (6 0 mg PO DIRECTED #1 packet 08/30/21 tabs)] predniSONE 50 mg PO DAILY #3 tab 08/30/21 Allergies Allergy/AdvReac Type Severity Reaction Status Date / Time No Known Allergies Allergy Verified 07/06/24 03:39 Review of Systems ROS Statement: Those systems with pertinent positive or pertinent negative responses have been documented in the HPI. ROS Other: All systems not noted in ROS Statement are negative. Past Medical History Past Medical History: Blood Disorder, Diabetes Mellitus Additional Past Medical History / Comment(s): pseudo tumor causing chest pain in 2014, migraines. ANEMIA History of Any Multi-Drug Resistant Organisms: None Reported, MRSA Date of last positivie culture/infection: 2011 MDRO Source:: hand Past Surgical History: No Surgical Hx Reported Additional Past Surgical History / Comment(s): LUMBAR PUNCTURE Past Anesthesia/Blood Transfusion Reactions: Unable to Obtain Past Psychological History: No Psychological Hx Reported Smoking Status: Never smoker Past Alcohol Use History: None Reported Past Drug Use History: None Reported - Past Family History Father Family Medical History: Diabetes Mellitus Mother Family Medical History: Asthma, Diabetes Mellitus General Exam General appearance: alert, in no apparent distress Head exam: Present: atraumatic, normocephalic, normal inspection Eye exam: Present: normal appearance, PERRL, EOMI. Absent: scleral icterus, conjunctival injection, periorbital swelling ENT exam: Present: normal exam, mucous membranes moist Neck exam: Present: normal inspection. Absent: tenderness, meningismus, lymphadenopathy Respiratory exam: Present: normal lung sounds bilaterally. Absent: respiratory distress, wheezes, rales, rhonchi, stridor Cardiovascular Exam: Present: regular rate, normal rhythm, normal heart sounds. Absent: systolic murmur, diastolic murmur, rubs, gallop, clicks GI/Abdominal exam: Present: soft, normal bowel sounds. Absent: distended, tenderness, guarding, rebound, rigid Extremities exam: Present: normal inspection, full ROM, normal capillary refill. Absent: tenderness, pedal edema, joint swelling, calf tenderness Back exam: Present: normal inspection Neurological exam: Present: alert, oriented X3, CN II-XII intact Psychiatric exam: Present: normal affect, normal mood Skin exam: Present: warm, dry, intact, normal color. Absent: rash Course Vital Signs 07/06/24 03:37 Temperature 98.3 F Pulse Rate 99 Respiratory 18 Rate Blood Pressure 154/98 O2 Sat by Pulse 100 Oximetry - Reevaluation(s) Reevaluation #1: 07/06/24 04:10 Medical records reviewed Reevaluation #4: Was pt. sent in by a medical professional or institution (, PA, ICING MACHINE OPERATOR, urgent care, hospital, or correction...) When possible be specific @ -no Did you speak to anyone other than the patient for history (EMS, parent, family, police, friend...)? What history was obtained from this source @ -no Did you review nursing and triage notes (agree or disagree)? Why? @ -agree Are old charts reviewed (outside hosp., previous admission, EMS record, old EKG, old radiological studies, urgent care reports/EKG's, correction records)? Report findings @ -yes Differential Diagnosis (chest pain, altered mental status, abdominal pain women, abdominal pain men, vaginal bleeding, weakness, fever, dyspnea, syncope, headache, dizziness, GI bleed, back pain, seizure, CVA, palpatations, mental health, musculoskeletal)? @ -prior EKG interpreted by me (3pts min.). @ -yes X-rays interpreted by me (1pt min.). @ -yes negative for acute disease CT interpreted by me (1pt min.). @ -no U/S interpreted by me (1pt. min.). @ -no What testing was considered but not performed or refused? (CT, X-rays, U/S, labs)? Why? @ -none What meds were considered but not given or refused? Why? @ -none Did you discuss the management of the patient with other professionals (joselin fournier i.e. , PA, ICING MACHINE OPERATOR, lab, RT, psych nurse, renal social worker, rainbow [place] farm manager, teacher, global chief experience officer, manager of case management)? Give summary @ -no Was smoking cessation discussed for >3mins.? @ -no Was critical care preformed (if so, how long)? @ -no Were there social determinants of health that impacted care today? How? (Homelessness, low income, unemployed, alcoholism, drug addiction, transportation, low edu. Level, literacy, decrease access to med. care, residential, rehab)? @ -none Was there de-escalation of care discussed even if they declined (Discuss DNR or withdrawal of care, Hospice)? DNR status @ -no What co-morbidities impacted this encounter? (DM, HTN, Smoking, COPD, CAD, Cancer, CVA, ARF, Chemo, Hep., AIDS, mental health diagnosis, sleep apnea, morbid obesity)? @ -none Was patient admitted / discharged? Hospital course, mention meds given and route, prescriptions, significant lab abnormalities, going to OR and other pertinent info. @ - Undiagnosed new problem with uncertain prognosis? @ -no Drug Therapy requiring intensive monitoring for toxicity (Heparin, Nitro, Insulin, Cardizem)? @ -no Were any procedures done? @ -no Diagnosis/symptom? @ - Acute, or Chronic, or Acute on Chronic? @ -Acute Uncomplicated (without systemic symptoms) or Complicated (systemic symptoms)? @ -Complicated Side effects of treatment? @ -no Exacerbation, Progression, or Severe Exacerbation? @ -exacerbation Poses a threat to life or bodily function? How? (Chest pain, [place], [place], pneumonia, PE, COPD, DKA, ARF, appy, cholecystitis, CVA, Diverticulitis, Homicidal, Suicidal, threat to staff... and all critical care pts) @ -yes Medical Decision Making - Lab Data Lab Results 07/06/24 07/06/24 Range/Units 03:57 03:57 Influenza Type A (PCR) Not Detected (Not Detectd) Influenza Type B (PCR) Not Detected (Not Detectd) RSV (PCR) Not Detected (Not Detectd) SARS-CoV-2 (PCR) Not Detected (Not Detectd) Group A Strep (PCR) NOT DETECTED (Not Detectd) Disposition Clinical Impression: Gastroenteritis Disposition: HOME SELF-CARE Instructions (If sedation given, give patient instructions): Acute Nausea and Vomiting (ED), Acute Diarrhea (ED) Is patient prescribed a controlled substance at d/c from ED?: No Referrals: Jared Allen MD [Primary Care Provider] - 1-2 days Time of Disposition: 05:00
[2024-07-06] MEDS: ACETAMINOPHEN TAB 500 MG TAB PO STA (03:55)
[2024-07-06] MEDS: ONDANSETRON ODT 4 MG TAB PO STA (03:55)
[2024-07-06] MEDS: IBUPROFEN 800 MG TAB PO STA (03:55)
[2024-07-06 04:39] LABS: Influenza A Not Detected (Not Detectd); Influenza B Not Detected (Not Detectd); RSV Not Detected (Not Detectd)
[2024-07-06] MEDS: IBUPROFEN 600 MG STARTER PACK 4 TAB BTL PO STA (05:11)
[2024-07-06] MEDS: ONDANSETRON 4 MG ODT STARTER PACK 2 TAB BTL PO STA (05:11)
[2024-07-06 05:22] VITALS: BP 113/76; PULSE 95; RESP 20; TEMP 98
== END 2024-07-06 05:14 | disposition home or self-care (01) ==
LOC: EC 03:30
DX: K52.9 Noninfective gastroenteritis and colitis, unspecified (principal)
CPT/HCPCS: 87651; 87636; 99284; S0119